=== PATIENT | female | born 1950 | race Caucasian/White ===

== ENCOUNTER → 2024-05-15 | Outpatient (CLI) | payer MEDICARE, SELFPAY ==
[2024-05-15 13:06] LABS: Basophils % (Auto) 1 % (0-2.5); Eosinophils # (Auto) 0.1 Thou/mm3 (0.0-0.5); Eosinophils % (Auto) 1 % (0-10); Hematocrit 39.1 % (36.0-46.0); Hemoglobin 12.7 g/dL (12.0-16.0); Immature Granulocytes % (Auto) 0 % (0-0); Immature Granulocytes Auto 0.01 Thou/mm3 (0.00-0.00); Lymphocytes # (Auto) 1.7 Thou/mm3 (1.0-4.8); Lymphocytes % (Auto) 28 % (10-50); Mean Corpuscular HGB Conc 32.5 g/dl (31.0-37.0); Mean Corpuscular Hemoglobin 32.2 pg (25.0-35.0); Mean Corpuscular Volume 99 fL (80-100); Monocytes # (Auto) 0.6 Thou/mm3 (0.0-0.8); Monocytes % (Auto) 9 % (0-12); Neutrophils # (Auto) 3.7 Thou/mm3 (1.8-7.7); Neutrophils % (Auto) 61 % (37-80); Nucleated Red Blood Cell % 0 /100 WBC (0); Platelet Count 241 Thou/mm3 (140-440); RDW Standard Deviation 46.7 fL (36.4-46.3); Red Blood Count 3.94 Miln/mm3 (4.00-5.20); White Blood Count 6.1 Thou/mm3 (3.6-11.0)
[2024-05-15 13:28] LABS: Alanine Aminotransferase 21 U/L (10-49); Albumin, Serum 4.7 gm/dL (3.4-4.8); Alkaline Phosphatase 57 U/L (46-116); Anion Gap 6 (7-16); Aspartate Amino Transferase 27 U/L (0-34); BUN/Creatinine Ratio 20 Ratio (12-20); Bilirubin,Direct 0.2 mg/dL (0.0-0.3); Bilirubin,Total 0.6 mg/dL (0.3-1.2); Blood Urea Nitrogen 18 mg/dL (9-23); Calcium 10.6 mg/dL (8.3-10.6); Calcium (Corrected) 10.6 mg/dL (8.5-10.1); Carbon Dioxide 28.6 mMol/L (20.0-31.0); Cardiac Risk Estimate 2.1 RATIO (3.7-5.6); Chloride 104 mMol/L (98-107); Cholesterol 174 mg/dL (132-200); Creatinine (Component) 0.9 mg/dL (0.6-1.3); Free T4 (Free Thyroxine) 1.19 ng/dL (0.89-1.76); Globulin 2.3 gm/dL (2.3-3.5); Glucose 93 mg/dL (74-106); HDL Cholesterol 83 mg/dL (40-60); LDL Cholesterol,Calculated 77 mg/dL (0-130); Osmolality,Calculated 279 (275-295); Potassium 4.8 mMol/L (3.4-5.1); Sodium 139 mMol/L (136-145); Thyroid Stimulating Hormone 1.04 uIU/mL (0.55-4.78); Triglycerides 70 mg/dL (30-150); eGFR > 60 See Note
== END | disposition home or self-care (01) ==
PROVIDERS: PCP Family Medicine; Referring Provider Internal Medicine Cardiovascular Disease; Visit Provider Internal Medicine Cardiovascular Disease
DX: E03.9 Hypothyroidism, unspecified (principal); I10 Essential (primary) hypertension; I20.9 Angina pectoris, unspecified; E78.5 Hyperlipidemia, unspecified
CPT/HCPCS: 36415; 80053; 80061; 82248; 84439; 84443; 85025

== ENCOUNTER → 2024-06-02 | Outpatient (CLI) | payer OTHER, SELFPAY ==
[2024-06-08 06:57] LABS: Fecal Globin Result NOT DETECTED (NOT DETECTED)
== END | disposition home or self-care (01) ==
PROVIDERS: PCP Family Medicine; Referring Provider Family Medicine; Visit Provider Family Medicine
DX: Z12.11 Encounter for screening for malignant neoplasm of colon (principal)
CPT/HCPCS: 82274; G0328

== ENCOUNTER → 2024-07-16 | Outpatient (CLI) | payer OTHER, SELFPAY ==
--- NOTE | 2024-07-16 15:15 | XR_ITS ---
Examination: Screening digital mammography, bilateral Computer aided detection 3-D breast Tomosynthesis, bilateral Date and time of exam: 07/16/2024, 3:15 PM Comparisons: 03/08/2017 Indications: Screening, history of left breast cancer Technique: Nonmagnified MLO, CC views of the breasts to been obtained, reconstructed from 3-D Tomosynthesis images. R2 computer aided detection program utilized for evaluation of suspicious masses and/or abnormal calcifications. 3-D Tomosynthesis images obtained. Technologist: Findings: There are scattered areas of fibroglandular density. Stable postoperative changes in the left breast. Otherwise, no evidence of abnormal masses or suspicious calcifications. Impression: BI-RADS category 2: Benign findings Recommend 1 year follow-up mammogram
== END | disposition home or self-care (01) ==
LOC: CDIM 15:00
PROVIDERS: PCP Family Medicine; Referring Provider Family Medicine; Visit Provider Family Medicine
DX: Z12.31 Encounter for screening mammogram for malignant neoplasm of breast (principal); R92.323 Mammographic fibroglandular density, bilateral breasts
CPT/HCPCS: 77063; 77067

== ENCOUNTER → 2024-07-31 | Outpatient (CLI) | payer OTHER, SELFPAY ==
--- NOTE | 2024-07-31 15:39 | XR_ITS ---
EXAMINATION: Cervical spine, 5 views Technique: Cervical spine AP, AP odontoid, lateral, bilateral obliques, 5 views Exam date and time: July 31, 2024, 1608 hrs. Indications: Neck pain beginning 2 years ago. Findings: No cervical fracture. Intact odontoid Mild to moderate degenerative disc disease C5-C6 with mild bilateral neural foraminal stenosis Impression: Mild to moderate degenerative disc disease C5-C6
== END | disposition home or self-care (01) ==
PROVIDERS: PCP Family Medicine; Referring Provider Family Medicine; Visit Provider Family Medicine
DX: M50.322 Other cervical disc degeneration at C5-C6 level (principal)
CPT/HCPCS: 72050

== ENCOUNTER 2025-02-07 23:49 | Emergency (ER) | payer OTHER, SELFPAY ==
--- NOTE | 2025-02-08 00:04 | EDNOTE_ITS ---
ED Female Urogenital RME/HPI General Chief complaint: Urogenital-Female Stated complaint: URINATING BLOOD Time Seen by Provider: 02/08/25 00:12 Arrival date/time: 02/07/25 23:49 RME / HPI RME / HPI Narrative: See [facility] for Dr. Carney's HPI documentation. Related Data Home Medications ?Medication ?Instructions ?Recorded ?Confirmed Levothyroxine * (SYNTHROID *) 50 mcg PO QDAY #0 tabs 0 09/08/14 omeprazole 40 mg capsule,delayed 40 mg PO QDAY ##0 release (Prilosec) rosuvastatin 10 mg tablet (Crestor) 10 mg PO HS #0 tab s 09/08/14 Previous Rx's ?Medication ?Instructions ?Recorded acyclovir 800 mg tablet 800 mg PO 5 TIMES DAILY ##20 10/06/11 cefdinir 300 mg capsule 300 mg PO BID #14 caps 02/08 ondansetron 4 mg disintegrating 4 mg PO TID PRN nausea and 02/08/25 tablet vomiting 30 days #10 tabs Allergies Allergy/AdvReac Type Severity Reaction Status Date / Time SULFA Allergy Intermediate Rash Uncoded 02/07/25 23:51 [employer] AdvReac Unknown Uncoded 02/07/25 23:51 Review of Systems Review of Systems Systems Reviewed: All systems reviewed, normal except as documented Past Medical History Social History SMOKING STATUS: Never smoker ED Exam Narrative Physical exam: See [facility] for Dr. Carney's physical exam documentation. Course Quality Measures none Orders Category Date Time Status Urinalysis, C/S if Indicated Stat Lab 02/08/25 00:27 Completed Urine Culture Stat Lab 02/08/25 00:27 Received ACETAMINOPHEN w/COD 300-30 [Tylenol w/Cod #3] Med 02/08/25 02:11 Discontinued 1 tab PO X1 ONE Ondansetron Odt [Zofran Odt] Med 02/08/25 01:54 Discontinued 4 mg PO X1 ONE Phenazopyridine HCl [Pyridium] Med 02/08/25 02:11 Discontinued 200 mg PO X1 ONE cefTRIAXone [Rocephin] 1,000 mg Med 02/08/25 01:33 Discontinued Lidocaine 1% 20 ml [Xylocaine 1% 20 ML] 2.1 ml IM X1 Vital Signs Vital signs: Vital Signs Temperature 98.4 F 02/08/25 00:21 Pulse Rate 67 02/08/25 00:21 Respiratory Rate 15 02/08/25 00:21 Blood Pressure 147/73 H 02/08/25 00:21 Pulse Oximetry (%) 99 02/08/25 00:21 Oxygen Delivery Method Room Air 02/08/25 00:21 Urogenital - Female MDM Narrative MDM Narrative:: This section includes all my notes and documentations, including HPI, PE, and ED course. Jeromy Carney MD HPI: 74yo female here with hematuria and dysuria for the last couple days. No fever or chills. Patient is concerned for UTI. No other complaints reported. ROS: All negative except as documented in HPI. Physical Exam: General: Alert and oriented. No acute distress when remaining still. Eyes: Conjunctivae and lids clear. ENT: No nasal congestion. Neck: Supple. Heart: RRR. Lungs: No respiratory distress. Good air movement. No rhonchi, wheezing, rales. Abdomen: Soft and nontender. Normal bowel sounds. No distension. No rebound or guarding. Back: No CVA tenderness. Skin: Warm and dry. Neuro: Alert and oriented X 3. I reviewed all diagnostic test results. UA remarkable for positive leukocyte esterase, 6598 RBCs, 102 WBCs, and 1+ bacteria. At this point, diagnoses include: UTI Treatment here included: Rocephin 1 g IM Pyridium 200 mg Tylenol #3 She felt much better. Recommended a trial of outpatient treatment. Based on my best medical judgment, made decision no further evaluation or treatment indicated at this time. Patient understands and agrees to the discharge instructions customized and printed, see below. Discharge instructions from Dr. Carney: 1. After evaluation, you have severe UTI (see attached handout). 2. Take cefdinir to kill the germs causing the infection. 3. For good hydration, increase oral fluid and maintain clear urine. If dark or yellow, increase oral fluid. Zofran for nausea/vomiting. 4. See a private doctor on 02/11/2025 for recheck. Ask to check the final urine culture results from today to make sure cefdinir doesn't need to be changed due to resistance. And ask for help until you have no more blood in your urine, not even microscopic blood. Otherwise, ask for referral to see urologist. 5. Seek immediate medical care with worsening, fever, or with any concerns. Jeromy Carney MD Patient data External records reviewed:: [facility] previous records (Per chart review, patient has no previous ED visits or admissions to this facility.) Clinical information provided by:: patient Social determinants that could affect healthcare access:: none Patient has the following chronic illnesses:: none How is presenting disease/condition affected by chronic disease/condition?: no chronic disease Evaluation data The following diagnostics were reviewed and interpreted by me:: lab results Lab and/or radiology exams considered but not ordered:: none Interpretation Summary: I reviewed all diagnostic test results. UA remarkable for positive leukocyte esterase, 6598 RBCs, 102 WBCs, and 1+ bacteria. Medications / Prescriptions Medications or Prescriptions considered but not ordered:: none Medication administrations:: Medication Administration History Discontinued Medications Acetaminophen/Codeine Phosphate (Acetaminophen W/Cod 300-30 Tablet) 1 tab PO X1 ONE Stop: 02/08/25 02:12 Last Admin: 02/08/25 02:22 Dose: 1 tab Documented By: CVL Ceftriaxone Sodium 1,000 mg/ (Lidocaine HCl 2.1 ml) 0 mg IM X1 ONE Stop: 02/08/25 01:34 Last Admin: 02/08/25 01:45 Dose: 1,000 mg Documented By: CVL Ondansetron HCl (Ondansetron Odt 4 Mg Tabrap) 4 mg PO X1 ONE; Protocol Stop: 02/08/25 01:55 Last Admin: 02/08/25 02:13 Dose: 4 mg Documented By: CVL Phenazopyridine HCl (Phenazopyridine Hcl 100 Mg Tablet) 200 mg PO X1 ONE Stop: 02/08/25 02:12 Last Admin: 02/08/25 02:21 Dose: 200 mg Documented By: CVL Treatment here included: Rocephin 1 g IM Pyridium 200 mg Tylenol #3 Consultations Consultation(s) initiated? (list below): No Diagnosis Urogenital Female Differential Diagnosis: urinary tract infection, cystitis and dysmenorrhea Most likely diagnosis given after review of the tests above:: UTI Admission Indicated Admission indicated?: not indicated Explain why admission is indicated or not indicated:: With significant improvement and no condition needing emergent intervention, there was no indication for admission. Admission Request Was there a request for admission?: No Disposition Plan Disposition Plan: Discharge Discharge Attestation Discharge Attestation: The patient and all family members were given an opportunity to ask questions and understood the discharge instructions. Discharge instructions specifically effects, indications for sooner follow up or return to the emergency department, and the expected course of current diagnosis. Patient condition: Stable Discharge Plan Plan Patient Disposition: HOME (Self Care) Prescriptions/Referrals Prescriptions/Med Rec: New ondansetron 4 mg tablet,disintegrating 4 mg PO TID PRN (Reason: nausea and vomiting) 30 Days Qty: 10 0RF cefdinir 300 mg capsule 300 mg PO BID Qty: 14 0RF No Action acyclovir 800 MG tablet 800 mg PO 5 TIMES DAILY Qty: 20 0RF omeprazole [Prilosec] 40 MG capsule,delayed release(DR/EC) 40 mg PO QDAY Qty: 0 Patient Comments: TO SUPPRESS [employer]ETIONS rosuvastatin [Crestor] 10 MG tablet 10 mg PO HS Qty: 0 Levothyroxine * (SYNTHROID *) 50 MCG tablet 50 mcg PO QDAY Qty: 0 Referrals: Marco Maxwell MD [Primary Care Provider, Family Practice] - In 1 week Problem List Clinical Impression: Urinary tract infection Patient/Caregiver Discharge Instructions Discharge Activity: activity as tolerated Education Materials: ED Hematuria, ED CYSTITIS Female Adult Additional Instructions: Discharge instructions from Dr. Carney: 1. After evaluation, you have severe UTI (see attached handout). 2. Take cefdinir to kill the germs causing the infection. 3. For good hydration, increase oral fluid and maintain clear urine. If dark or yellow, increase oral fluid. Zofran for nausea/vomiting. 4. See a private doctor on 02/11/2025 for recheck. Ask to check the final urine culture results from today to make sure cefdinir doesn't need to be changed due to resistance. And ask for help until you have no more blood in your urine, not even microscopic blood. Otherwise, ask for referral to see urologist. 5. Seek immediate medical care with worsening, fever, or with any concerns. Print Language: [place] Stand Alone Forms: [employer] Award Info., Patient Portal Info Letter
[2025-02-08 00:21] VITALS: BP 147/73; PULSE 67; RESP 15; TEMP 36.9; O2SAT 99
[2025-02-08 00:37] LABS: Collection Type, Urine Clean Catch; Squamous Epithelial Cell,Urine 0 /hpf (0-5)
[2025-02-08 01:09] LABS: Bacteria,Urine 1+; Bilirubin,Urine Negative (Negative); Blood,Urine 3+ (Negative); Color,Urine Dark-Brown (Lt Yel-Yel); Glucose, Urine Negative (Negative); Ketones,Urine Negative (Negative); Leukocyte Esterase,Urine Positive (Negative); Nitrite,Urine Negative (Negative); PH,Urine 7.0 (5.0-7.0); Protein,Urine 2+ (Neg - Trace); RBC,Urine 6598 /hpf (0-3); Specific Gravity,Urine 1.017 (1.001-1.035); Urobilinogen,Urine Negative mg/dL (0.0-1.0); WBC,Urine 102 /hpf (0-5)
[2025-02-08 01:12] LABS: Clarity,Urine Turbid (Clear/Hazy); Culture Indicated,Urine Yes
[2025-02-08] MEDS: cefTRIAXone 1,000 MG, LIDOCAINE 1% 20 ML 2.1 ML IM (01:45)
[2025-02-08] MEDS: ONDANSETRON ODT 4 MG TABRAP PO (02:13)
[2025-02-08] MEDS: PHENAZOPYRIDINE HCL 100 MG TABLET 200 MG PO (02:21)
[2025-02-08] MEDS: ACETAMINOPHEN w/COD 300-30 TABLET 1 TAB PO (02:22)
[2025-02-08 02:40] VITALS: RESP 18
== END 2025-02-08 02:40 | disposition home or self-care (01) ==
PROVIDERS: Emergency Provider Emergency Medicine; PCP Family Medicine
DX: N39.0 Urinary tract infection, site not specified (principal); R31.9 Hematuria, unspecified
CPT/HCPCS: 81001; 87077; 87086; 87186; 96372; 99283; J0696; J3490; Q0162; A9270

== ENCOUNTER → 2025-02-16 | Outpatient (CLI) | payer OTHER, SELFPAY ==
[2025-02-16 14:28] LABS: Collection Type, Urine Clean Catch
[2025-02-16 16:43] LABS: Bilirubin,Urine Negative (Negative); Blood,Urine Negative (Negative); Clarity,Urine Clear (Clear/Hazy); Color,Urine Colorless (Lt Yel-Yel); Glucose, Urine Negative (Negative); Ketones,Urine Negative (Negative); Leukocyte Esterase,Urine Negative (Negative); Nitrite,Urine Negative (Negative); PH,Urine 6.0 (5.0-7.0); Protein,Urine Negative (Neg - Trace); RBC,Urine < 1 /hpf (0-3); Specific Gravity,Urine 1.005 (1.001-1.035); Squamous Epithelial Cell,Urine 1 /hpf (0-5); Urobilinogen,Urine Negative mg/dL (0.0-1.0); WBC,Urine < 1 /hpf (0-5)
== END | disposition home or self-care (01) ==
LOC: SLDO 14:11
PROVIDERS: PCP Nurse Practitioner Family; Referring Provider Nurse Practitioner Family; Visit Provider Nurse Practitioner Family
DX: N39.0 Urinary tract infection, site not specified (principal)
CPT/HCPCS: 81001; 87086

== ENCOUNTER → 2025-03-31 | Outpatient (CLI) | payer OTHER, SELFPAY ==
--- NOTE | 2025-03-31 10:30 | XR_ITS ---
Examination: MRI cervical spine without intravenous contrast Date and time of exam: March 31, 2025, 1202 hours, comparison July 16, 2020 INDICATIONS: Neck pain beginning 4 years ago, radiating to the shoulders and down the left arm Technique: Multiple axial and sagittal sections of the cervical spine to been obtained. T2 weighted sagittal sections, TR 3, 270, TE 117 T1-weighted sagittal sections, TR 500, TE 11 T1-weighted axial sections, TR 607, TE 12, axial sections TR 18, TE 27 and T2 weighted transverse sections, TR 3920, TE 122. Findings: Adequate alignment cervical vertebral bodies No cervical fracture Intact odontoid Diffuse cervical disc desiccation Mild disc narrowing C5-C6 No localized enlargement cervical cord C2-C3 no disc protrusion C3-C4 no disc protrusion. C4-C5 2 mm central subarticular osteophyte disc complex, mild bilateral neural foraminal stenosis C5-C6 uncinate process hypertrophy with moderate bilateral neural foraminal stenosis C6-C7 4 mm right paracentral subarticular osteophyte disc complex, mild to moderate right neural foraminal stenosis C7-T1 no disc protrusion IMPRESSION: C4-C5 2 mm central subarticular osteophyte disc complex, mild bilateral neural foraminal stenosis C5-C6 uncinate process hypertrophy with moderate bilateral neural foraminal stenosis C6-C7 4 mm right paracentral subarticular osteophyte disc complex, mild to moderate right neural foraminal stenosis
== END | disposition home or self-care (01) ==
PROVIDERS: PCP Family Medicine; Referring Provider Family Medicine; Visit Provider Family Medicine
DX: M25.78 Osteophyte, vertebrae (principal); M48.02 Spinal stenosis, cervical region
CPT/HCPCS: 72141